=== PATIENT | male | born 1945 | race Caucasian/White ===

== ENCOUNTER 2022-09-01 10:49 | Outpatient (CLI) | payer MEDICARE, OTHER ==
[2022-09-01 11:46] LABS: Mean Corpuscular HGB CONC 34.6 g/dL (32.0-36.0); Mean Corpuscular Hemoglobin 28.8 pg (27.0-33.0); Mean Corpuscular Volume 83.3 fl (81.2-95.1); Mean Platelet Volume 8.7 fl (7.4-10.4); Platelet Count 225 10x3/uL (150-450); RBC Distribution Width 12.9 % (11.5-14.5); Red Blood Cell (RBC) Count 4.86 10x6/uL (4.32-5.72); White Blood Cell (WBC) Count 4.2 10x3/uL (3.5-10.5)
[2022-09-01 12:03] LABS: PTT 29.5 sec (22.0-33.0); Prothrombin Time 10.8 sec (9.5-12.1)
[2022-09-01 12:12] LABS: Anion Gap 14 mmol/L (10-20); BUN (Urea Nitrogen) 13 mg/dL (8.4-25.7); Calc. Creatinine Clearance 0 mL/min (70-130); Calcium 9.3 mg/dL (7.8-10.44); Carbon Dioxide 23 mmol/L (23-31); Chloride 104 mmol/L (98-107); Estimated GFR 85; Glucose 118 mg/dL (83-110); Potassium 4.4 mmol/L (3.5-5.1); Sodium 137 mmol/L (136-145)
== END 2022-09-01 10:50 | disposition home or self-care (01) ==
LOC: CSHLAB 10:49
PROVIDERS: ATTEND Specialist
DX: Z01.818 Encounter for other preprocedural examination (principal)
CPT/HCPCS: 80048; 85027; 85610; 85730; 93005; 93010

== ENCOUNTER → 2022-09-02 | Day surgery (SDC) | payer MEDICARE, OTHER ==
[~2022-09-02] MED LIST: Adenosine 6 MG/2 ML VIAL ONE; Fentanyl 100 MCG/2 ML VIAL ONE; Heparin 10,000 UNITS/ 10 ML VIAL ONE; Iopamidol 300 61% 100 ML VIAL FS ONE; Lidocaine 1% (PF) 30 ML VIAL ONE; Lidocaine 1% MPF 2 ML VIAL ONE; Midazolam HCl 2 mg/2 ml Vial ONE; Nitroglycerin 50 MG/250 ML BOT 0 ML ONE; Sodium Chloride 0.9% 1,000 ML ONE; Verapamil 5 MG/2 ML VIAL ONE
[2022-09-02 09:29] VITALS: BP 158/76; TEMP 97.6
== END ==
LOC: CSHCCL 06:08
PROVIDERS: ATTEND Specialist
DX: I25.10 Atherosclerotic heart disease of native coronary artery without angina pectoris (principal); R94.39 Abnormal result of other cardiovascular function study; I73.9 Peripheral vascular disease, unspecified; G47.00 Insomnia, unspecified; K21.9 Gastro-esophageal reflux disease without esophagitis; E03.9 Hypothyroidism, unspecified; E78.2 Mixed hyperlipidemia; I50.1 Left ventricular failure, unspecified; I11.0 Hypertensive heart disease with heart failure; Z79.899 Other long term (current) drug therapy
CPT/HCPCS: 71046; 93459; C1760; C1769 ×2; C1887; C1894; 99152; 99153; J0153; J1644; J2001; J2250; J3010; J7050; Q9967

== ENCOUNTER 2025-04-11 07:12 | Day surgery (SDC) | payer MEDICARE, OTHER ==
[2025-04-11 07:56] VITALS: BP 170/81; TEMP 97.8
[2025-04-11 07:57] LABS: #Basophils Less than 0.03 10x3/uL (0.0-0.2); #Eosinophils 0.09 10x3/uL (0.0-0.5); #Monocytes 0.42 10x3/uL (0.0-1.1); #Neutrophils 2.71 10x3/uL (1.5-8.4); %Basophils 0.2 % (0.0-2.0); %Eosinophils 1.9 % (0.0-6.0); %Lymphocytes 30.8 % (18.0-47.0); %Monocytes 9.0 % (0.0-10.0); %Neutrophils 57.9 % (40.0-75.0); Hematocrit 41.6 % (38.8-50.0); Hemoglobin 14.8 g/dL (13.5-17.5); Mean Corpuscular Hemoglobin 29.8 pg (27.0-33.0); Mean Corpuscular Volume 83.7 fL (81.2-95.1); Platelet Count 226 10x3/uL (150-450); Red Blood Cell (RBC) Count 4.97 10x6/uL (4.32-5.72); White Blood Cell (WBC) Count 4.68 10x3/uL (3.5-10.5)
[2025-04-11] MEDS ORDERED: Heparin 10,000 UNITS/ 10 ML VIAL ONE ×2 (08:07→09:37)
[2025-04-11] MEDS ORDERED: Nitroglycerin 50 MG/250 ML BOT 250 ML ONE (08:07)
[2025-04-11] MEDS ORDERED: Lidocaine 1% (PF) 30 ML VIAL ONE (08:07)
[2025-04-11 08:10] LABS: Anion Gap 15 mmol/L (10-20); BUN (Urea Nitrogen) 12 mg/dL (8.4-25.7); Calc. Creatinine Clearance 74 mL/min (70-130); Calcium 9.5 mg/dL (7.8-10.44); Carbon Dioxide 22 mmol/L (23-31); Chloride 106 mmol/L (98-107); Glucose 126 mg/dL (83-110); Potassium 3.7 mmol/L (3.5-5.1); Sodium 139 mmol/L (136-145)
[2025-04-11 08:39] LABS: INR-International Normal Ratio 1.0; PTT 27.2 sec (22.0-33.0); Prothrombin Time 10.7 sec (9.5-12.1)
[2025-04-11] MEDS ORDERED: FLU (Fluad Triv) 25-26 (65UP)PF 45 MCG/0.5 ML Syringe IM ONE (09:00)
[2025-04-11] MEDS ORDERED: PNEUMOC 20-VAL CONJ-DIP CRM/PF 0.5 ML SYRINGE IM ONE (09:00)
[2025-04-11] MEDS ORDERED: PHENYLEPHRINE-NS 100 MCG/ML 10 ML SYRINGE ONE (09:15)
[2025-04-11] MEDS ORDERED: Iopamidol 300 61% 100 ML VIAL FS ONE (11:00)
== END 2025-04-11 18:22 | disposition home or self-care (01) ==
LOC: CSHCCL 07:12
PROVIDERS: ATTEND Specialist
DX: I25.118 Atherosclerotic heart disease of native coronary artery with other forms of angina pectoris (principal); R07.9 Chest pain, unspecified
CPT/HCPCS: 80048; 85025; 85347 ×2; 85610; 85730; 93005; 93459; C1769 ×3; C1874; C1887 ×4; C1894; C9600; J1644; J2003; J2250; J3010; Q9967; 92928; 93010; 99152; 99153; J0461